=== PATIENT | male | born 1950 | race Caucasian/White ===

== ENCOUNTER → 2016-03-17 | Outpatient (CLI) | payer MEDICARE ==
--- NOTE | 2016-03-18 10:18 | MR ---
EXAMINATION TYPE: MR brain wo con DATE OF EXAM: 03/17/2016 4:22 PM COMPARISON: Prior outside brain MRI report February 16, 2013. HISTORY: Poss Brain Mass per pt. Previous MRI at [facility]. Prior abnormal brain MRI. Locali zed swelling, mass and lump in head per order. TECHNIQUE: Multiplanar, multisequence imaging of the brain and brainstem is performed without IV cont rast. FINDINGS: Diffusion weighted images demonstrate no evidence of a recent infarct or other diffusion abnormality. There is no worrisome extra-axial fluid collection. There is ventricular and sulcal prominence consis tent with diffuse cerebral atrophy. There are focal and confluent areas of T2 hyperintensity seen thr oughout the white matter bilaterally. Lesions are nonspecific in appearance and distribution most lik michelle on basis of product of chronic small vessel ischemic change in patient this age. Midline structures demonstrate normal morphology. The craniocervical junction appears within normal limits. Normal vascular flow voids are present. The globes are intact bilaterally. There are some muc ous retention cysts or polyps suspected in the right sphenoid sinus anteriorly as well as in the nasa l vault. Mild mucosal thickening in right maxillary sinus is present. A small mucous retention cyst o r polyp anteriorly in the left maxillary sinus is felt present. IMPRESSION: There is mild diffuse cerebral atrophy and moderate to severe nonspecific white matter ch anges presumed on basis of product of chronic small vessel ischemic change in patient this age. Evalu ation for masses is suboptimal without IV contrast enhancement. Only correlation with old outside rep ort is performed, direct comparison may be beneficial.
== END | disposition home or self-care (01) ==
LOC: RADMRIMAIN 15:22
PROVIDERS: ATTEND Nurse Practitioner Family
DX: G31.9 Degenerative disease of nervous system, unspecified (principal); R90.82 White matter disease, unspecified; R22.0 Localized swelling, mass and lump, head
CPT/HCPCS: 70551

== ENCOUNTER → 2016-06-24 | Outpatient (CLI) | payer MEDICARE ==
--- NOTE | 2016-06-24 13:42 | US ---
EXAMINATION TYPE: US venous doppler duplex UE RT DATE OF EXAM: 06/24/2016 1:28 PM COMPARISON: NONE CLINICAL HISTORY: I82.621 Acute embolism/throm right upper extremity. Patient c/o Right arm pain x 3 weeks especially laying on right side and with external arm rotation (patient c/o severe pain with e xternal rotation). SIDE PERFORMED: Right arm Right Arm: Negative for DVT and negative for SVT. Tech findings called to [place] at Dr Almanza's Office at exam's end. IMPRESSION: 1. Right upper extremity negative for deep venous thrombosis. 2. Right upper extremity negative for superficial venous thrombosis.
[2016-06-24 14:07] LABS: Basophils # (A) 0.1 k/uL (0-0.2); Basophils % (A) 1 %; CH 32.4; CHCM 35.6; Eosinophils # (A) 0.6 k/uL (0-0.7); Eosinophils % (A) 5 %; HCT 42.4 % (39.0-53.0); HDW 2.78; HGB 14.6 gm/dL (13.0-17.5); Luc # (Auto) 0.29; Luc % (Auto) 3; Lymphocytes # (A) 1.8 k/uL (1.0-4.8); Lymphocytes % (A) 17 %; MCH 31.6 pg (25.0-35.0); MCHC 34.5 g/dL (31.0-37.0); MCV 91.5 fL (80.0-100.0); Mean Platelet Volume 6.8; Monocytes # (A) 0.8 k/uL (0-1.0); Monocytes % (A) 7 %; Neutrophils # (A) 7.5 k/uL (1.3-7.7); Neutrophils % (A) 68 %; RBC 4.63 m/uL (4.30-5.90); RDW 12.7 % (11.5-15.5); WBC (Perox) 10.95
[2016-06-24 15:14] LABS: Erythrocyte Sedimentation Rate 41 mm/hr (0-15)
== END | disposition home or self-care (01) ==
LOC: RADUSWWP 12:29
PROVIDERS: ATTEND Family Medicine
DX: I82.409 Acute embolism and thrombosis of unspecified deep veins of unspecified lower extremity (principal)
CPT/HCPCS: 36415; 85025; 85379; 85652; 86141

== ENCOUNTER 2017-01-31 08:29 | Emergency (ER) | payer MEDICARE, OTHER ==
[2017-01-31] MEDS ORDERED: MORPHINE SULFATE 2 MG/ML SYRINGE IVP STA (08:44)
[2017-01-31] MEDS ORDERED: SODIUM CHLORIDE 0.9% 500 ML IV STA (08:44)
[2017-01-31] MEDS ORDERED: ONDANSETRON 4 MG/2 ML VIAL IVP STA (08:44)
[2017-01-31] MEDS ORDERED: RX INFO: IV CONTRAST WAS GIVEN 1 EACH MISC MISCELLANE PRN (08:44)
[2017-01-31 09:18] LABS: Basophils # (A) 0.1 k/uL (0-0.2); Basophils % (A) 0 %; CH 30.1; Eosinophils # (A) 0.3 k/uL (0-0.7); Eosinophils % (A) 3 %; HCT 43.2 % (39.0-53.0); HDW 2.58; Luc # (Auto) 0.05; Luc % (Auto) 0; Lymphocytes # (A) 0.9 k/uL (1.0-4.8); Lymphocytes % (A) 7 %; MCH 29.7 pg (25.0-35.0); MCHC 32.4 g/dL (31.0-37.0); MCV 91.6 fL (80.0-100.0); Mean Platelet Volume 7.6; Monocytes # (A) 0.5 k/uL (0-1.0); Monocytes % (A) 4 %; Neutrophils # (A) 10.8 k/uL (1.3-7.7); Neutrophils % (A) 85 %; RBC 4.72 m/uL (4.30-5.90); RDW 13.8 % (11.5-15.5); WBC 12.7 k/uL (3.8-10.6); WBC (Perox) 12.92
[2017-01-31 09:27] LABS: ALT 33 U/L (21-72); AST 19 U/L (17-59); Alkaline Phosphatase 92 U/L (38-126); Amylase 57 U/L (30-110); Anion Gap 14 mmol/L; Blood Urea Nitrogen 19 mg/dL (9-20); Calcium 9.9 mg/dL (8.4-10.2); Carbon Dioxide 23 mmol/L (22-30); Chloride 105 mmol/L (98-107); Glucose 266 mg/dL (74-99); Non-African American GFR(MDRD) >60 (>60 ml/min/1.73 sqM); Sodium 142 mmol/L (137-145); Total Bilirubin 0.5 mg/dL (0.2-1.3)
[2017-01-31 09:33] LABS: INR 1.1 (<1.2); Partial Thromboplastin Time 24.1 sec (22.0-30.0); Prothrombin Time 11.1 sec (9.0-12.0)
[2017-01-31] MEDS ORDERED: SODIUM CHLORIDE 0.9% 1,000 ML IV ONE (09:39)
[2017-01-31 10:27] LABS: Appearance,Urine Clear (Clear); Bilirubin,Urine Negative (Negative); Glucose,Urine (UA) 3+ (Negative); Ketones,Urine Trace (Negative); Leukocyte Esterase,Urine Negative (Negative); Nitrite,Urine Negative (Negative); Protein,Urine Trace (Negative); UA Billing (MACRO vs. MICRO) CHEM; Urobilinogen,Urine <2.0 mg/dL (<2.0)
--- NOTE | 2017-01-31 11:03 | ED ---
Abdominal Pain HPI - General Chief Complaint: Abdominal Pain Stated Complaint: Abd Pain Time Seen by Provider: 01/31/17 08:35 Source: patient, RN notes reviewed Mode of arrival: ambulatory Limitations: no limitations - History of Present Illness Initial Comments: 66-year-old male presents emergency Department with chief complaint of abdominal pain. Patient states is generalized abdominal pain started yesterday afternoon. Patient states is no localized abdominal pain denies nausea vomiting diarrhea constipation. Patient's had no prior abdominal surgeries. Denies any dysuria hematuria. Patient states he tried some Pepto-Bismol no relief of his symptoms. She denies chest pain, shortness breath, back pain, headache or dizziness - Related Data Home Medications Medication Instructions Recorded Confirmed Atorvastatin Calcium [Lipitor] 20 mg PO HS 01/31/17 01/31/17 Gabapentin [Neurontin] 300 mg PO BID 01/31/17 01/31/17 Hydrochlorothiazide [Hydrodiuril] 25 mg PO DAILY 01/31/17 01/31/17 Lisinopril 40 mg PO DAILY 01/31/17 01/31/17 Metoprolol Tartrate [Lopressor] 100 mg PO BID 01/31/17 01/31/17 Tamsulosin [Flomax] 0.4 mg PO HS 01/31/17 01/31/17 glipiZIDE [Glucotrol] 10 mg PO AC-BID 01/31/17 01/31/17 metFORMIN HCL [metFORMIN HCL] 1,000 mg PO BID 01/31/17 01/31/17 sitaGLIPtin [Januvia] 100 mg PO DAILY 01/31/17 01/31/17 Previous Rx's Medication Instructions Recorded Dicyclomine [Bentyl] 20 mg PO TID #30 tablet 01/31/17 Allergies Allergy/AdvReac Type Severity Reaction Status Date / Time No Known Allergies Allergy Verified 01/31/17 08:50 Review of Systems ROS Statement: Those systems with pertinent positive or pertinent negative responses have been documented in the HPI. ROS Other: All systems not noted in ROS Statement are negative. Past Medical History Past Medical History: Diabetes Mellitus, Hypertension History of Any Multi-Drug Resistant Organisms: None Reported Past Psychological History: No Psychological Hx Reported Smoking Status: Never smoker Past Alcohol Use History: None Reported Past Drug Use History: None Reported General Exam Limitations: no limitations General appearance: alert, in no apparent distress Head exam: Present: atraumatic, normocephalic, normal inspection Respiratory exam: Present: normal lung sounds bilaterally. Absent: respiratory distress, wheezes, rales, rhonchi, stridor Cardiovascular Exam: Present: regular rate, normal rhythm, normal heart sounds. Absent: systolic murmur, diastolic murmur, rubs, gallop, clicks GI/Abdominal exam: Present: soft, tenderness (Mild diffuse), normal bowel sounds. Absent: distended, guarding, rebound, rigid Back exam: Absent: CVA tenderness (R), CVA tenderness (L) Skin exam: Present: warm, dry, intact, normal color. Absent: rash Course Vital Signs 01/31/17 01/31/17 08:31 11:02 Temperature 98.0 F Pulse Rate 64 64 Respiratory 20 18 Rate Blood Pressure 130/66 173/77 O2 Sat by Pulse 98 97 Oximetry Medical Decision Making - Medical Decision Making 66-year-old male presented for abdominal pain. Patient's laboratory showed mildly elevated lactic but most likely related to dehydration. Patient was hydrated which she states she feels much improved at this time. Patient CT she is not specific will be discharged at this time with follow-up with his to be in GI and return for any worsening symptoms. - Lab Data Result diagrams: 01/31/17 09:00 01/31/17 09:00 Lab Results 01/31/17 01/31/17 01/31/17 Range/Units 09:00 09:00 09:00 WBC 12.7 H (3.8-10.6) k/uL RBC 4.72 (4.30-5.90) m/uL Hgb 14.0 (13.0-17.5) gm/dL Hct 43.2 (39.0-53.0) % MCV 91.6 (80.0-100.0) fL MCH 29.7 (25.0-35.0) pg MCHC 32.4 (31.0-37.0) g/dL RDW 13.8 (11.5-15.5) % Plt Count 376 (150-450) k/uL Neutrophils % 85 % Lymphocytes % 7 % Monocytes % 4 % Eosinophils % 3 % Basophils % 0 % Neutrophils # 10.8 H (1.3-7.7) k/uL Lymphocytes # 0.9 L (1.0-4.8) k/uL Monocytes # 0.5 (0-1.0) k/uL Eosinophils # 0.3 (0-0.7) k/uL Basophils # 0.1 (0-0.2) k/uL PT (9.0-12.0) sec INR (<1.2) APTT (22.0-30.0) sec Sodium 142 (137-145) mmol/L Potassium 4.0 (3.5-5.1) mmol/L Chloride 105 (98-107) mmol/L Carbon Dioxide 23 (22-30) mmol/L Anion Gap 14 mmol/L BUN 19 (9-20) mg/dL Creatinine 0.94 (0.66-1.25) mg/dL Est GFR (MDRD) Af Amer >60 (>60 ml/min/1.73 sqM) Est GFR (MDRD) Non-Af >60 (>60 ml/min/1.73 sqM) Glucose 266 H (74-99) mg/dL Plasma Lactic Acid Marcos 2.7 H* (0.7-2.0) mmol/L Calcium 9.9 (8.4-10.2) mg/dL Total Bilirubin 0.5 (0.2-1.3) mg/dL AST 19 (17-59) U/L ALT 33 (21-72) U/L Alkaline Phosphatase 92 (38-126) U/L Total Protein 8.0 (6.3-8.2) g/dL Albumin 4.5 (3.5-5.0) g/dL Amylase 57 (30-110) U/L Lipase 216 (23-300) U/L Urine Color Urine Appearance (Clear) Urine pH (5.0-8.0) Ur Specific Hulett (1.001-1.035) Urine Protein (Negative) Urine Glucose (UA) (Negative) Urine Ketones (Negative) Urine Blood (Negative) Urine Nitrite (Negative) Urine Bilirubin (Negative) Urine Urobilinogen (<2.0) mg/dL Ur Leukocyte Esterase (Negative) 01/31/17 01/31/17 Range/Units 09:00 10:07 WBC (3.8-10.6) k/uL RBC (4.30-5.90) m/uL Hgb (13.0-17.5) gm/dL Hct (39.0-53.0) % MCV (80.0-100.0) fL MCH (25.0-35.0) pg MCHC (31.0-37.0) g/dL RDW (11.5-15.5) % Plt Count (150-450) k/uL Neutrophils % % Lymphocytes % % Monocytes % % Eosinophils % % Basophils % % Neutrophils # (1.3-7.7) k/uL Lymphocytes # (1.0-4.8) k/uL Monocytes # (0-1.0) k/uL Eosinophils # (0-0.7) k/uL Basophils # (0-0.2) k/uL PT 11.1 (9.0-12.0) sec INR 1.1 (<1.2) APTT 24.1 (22.0-30.0) sec Sodium (137-145) mmol/L Potassium (3.5-5.1) mmol/L Chloride (98-107) mmol/L Carbon Dioxide (22-30) mmol/L Anion Gap mmol/L BUN (9-20) mg/dL Creatinine (0.66-1.25) mg/dL Est GFR (MDRD) Af Amer (>60 ml/min/1.73 sqM) Est GFR (MDRD) Non-Af (>60 ml/min/1.73 sqM) Glucose (74-99) mg/dL Plasma Lactic Acid Marcos (0.7-2.0) mmol/L Calcium (8.4-10.2) mg/dL Total Bilirubin (0.2-1.3) mg/dL AST (17-59) U/L ALT (21-72) U/L Alkaline Phosphatase (38-126) U/L Total Protein (6.3-8.2) g/dL Albumin (3.5-5.0) g/dL Amylase (30-110) U/L Lipase (23-300) U/L Urine Color Yellow Urine Appearance Clear (Clear) Urine pH 5.0 (5.0-8.0) Ur Specific Hulett 1.020 (1.001-1.035) Urine Protein Trace H (Negative) Urine Glucose (UA) 3+ H (Negative) Urine Ketones Trace H (Negative) Urine Blood Negative (Negative) Urine Nitrite Negative (Negative) Urine Bilirubin Negative (Negative) Urine Urobilinogen <2.0 (<2.0) mg/dL Ur Leukocyte Esterase Negative (Negative) Disposition Clinical Impression: Abdominal pain Disposition: HOME SELF-CARE Condition: Stable Instructions: Abdominal Pain (ED) Additional Instructions: Please return to the Emergency Department if symptoms worsen or any other concerns. Prescriptions: Dicyclomine [Bentyl] 20 mg PO TID #30 tablet Referrals: Mar Suggs MD [Primary Care Provider] - 1-2 days Thiago Hardin MD [STAFF PHYSICIAN] - 1-2 days Time of Disposition: 11:21
--- NOTE | 2017-01-31 11:10 | CT ---
EXAMINATION TYPE: CT abdomen pelvis w con DATE OF EXAM: 01/31/2017 COMPARISON: NONE INDICATION: Patient complains of generalized abdominal/pelvic pain and nausea. DLP: 1910.2 mGycm, Automated exposure control for dose reduction was used. CONTRAST: 100 mL of Omnipaque 300. Study performed without Oral Contrast TECHNIQUE: Axial images were obtained from above the diaphragm to the pubic rami in the axial plane a t 5 mm thick sections. Reconstructed images are reviewed on the computer in the coronal plane. FINDINGS: Limited CT sections are obtained the lung bases. There is a 0.6 cm nodular density on the initial im age within the anterior right middle lobe. Series 5 image 1. Some mild infiltrate may be in the poste rior lateral right lung base and within the lingula. Consider atelectasis. Mild coronary artery calci fication is present.. CT ABDOMEN: Liver: Normal Spleen: Normal Pancreas: Normal Adrenal glands: The adrenal glands are normal. Gallbladder: Multiple dense gallstones are present. Kidneys: No masses are evident. No hydronephrosis is present. No cysts are present. Delayed images were obtained through the kidneys, which remain unremarkable. Aorta: Vascular calcification is within the aorta. Inferior vena cava: Normal. CT PELVIS: There are scattered small lymph nodes within the mesentery. No suspicious enlarged adenopa thy is evident. Fat-containing left inguinal hernia is present. Loops of bowel within the abdomen and pelvis are normal. This study is performed without oral con trast limiting the evaluation. Appendix: Normal as visualized. Urinary bladder: Normal. Genitourinary structures: The prostate is slightly prominent. Osseous structures: No suspicious lytic or sclerotic lesions. Spondylolysis of L5 is present. IMPRESSIONS: 1. No suspicious acute abnormality. 2. Small nodular density right middle lobe. Follow-up CT chest with contrast could be performed for c omplete evaluation on an outpatient basis. 3. Spondylolysis of L5.
[2017-01-31 11:41] VITALS: BP 127/71; PULSE 60; RESP 16; TEMP 97.2
== END 2017-01-31 11:41 | disposition home or self-care (01) ==
LOC: EC 08:29
DX: R10.84 Generalized abdominal pain (principal); E11.9 Type 2 diabetes mellitus without complications; I10 Essential (primary) hypertension; Z79.84 Long term (current) use of oral hypoglycemic drugs; Z79.899 Other long term (current) drug therapy
CPT/HCPCS: 36415; 80053; 82150; 83605; 83690; 85025; 85610; 85730; 81003; 87040; 74177; 99284; 96374; 96375; 96361 ×2; J2405; J2270; Q9967

== ENCOUNTER → 2017-06-20 | Outpatient (CLI) | payer MEDICARE, OTHER ==
[2017-06-20 16:10] LABS: Basophils # (A) 0.1 k/uL (0-0.2); Basophils % (A) 0 %; Eosinophils # (A) 0.8 k/uL (0-0.7); Eosinophils % (A) 6 %; HGB 14.4 gm/dL (13.0-17.5); Lymphocytes # (A) 2.1 k/uL (1.0-4.8); Lymphocytes % (A) 17 %; MCH 30.1 pg (25.0-35.0); MCHC 34.2 g/dL (31.0-37.0); MCV 88.1 fL (80.0-100.0); Mean Platelet Volume 6.8; Monocytes # (A) 0.8 k/uL (0-1.0); Monocytes % (A) 7 %; Neutrophils # (A) 8.4 k/uL (1.3-7.7); Neutrophils % (A) 68 %; Platelet Count 357 k/uL (150-450); RBC 4.77 m/uL (4.30-5.90); RDW 13.7 % (11.5-15.5); WBC 12.4 k/uL (3.8-10.6)
[2017-06-20 16:26] LABS: ALT 275 U/L (21-72); AST 102 U/L (17-59); Albumin 4.3 g/dL (3.5-5.0); Alkaline Phosphatase 143 U/L (38-126); Anion Gap 18 mmol/L; Blood Urea Nitrogen 17 mg/dL (9-20); Calcium 9.6 mg/dL (8.4-10.2); Carbon Dioxide 23 mmol/L (22-30); Chloride 104 mmol/L (98-107); Cholesterol 198 mg/dL (<200); Glucose 100 mg/dL (74-99); HDL Cholesterol 34 mg/dL (40-60); LDL Cholesterol,Calculated 115 mg/dL (0-99); Potassium 4.4 mmol/L (3.5-5.1); Sodium 145 mmol/L (137-145); Total Bilirubin 0.7 mg/dL (0.2-1.3); Total Protein 7.9 g/dL (6.3-8.2); Triglycerides 243 mg/dL (<150)
[2017-06-21 03:22] LABS: Hemoglobin A1C 6.2 % (4.0-6.0)
== END | disposition home or self-care (01) ==
LOC: LABWHC1 15:24
PROVIDERS: ATTEND Family Medicine
DX: E11.9 Type 2 diabetes mellitus without complications (principal); I10 Essential (primary) hypertension; E06.3 Autoimmune thyroiditis
CPT/HCPCS: 36415; 80053; 80061; 82043; 82570; 83036; 84439; 84443; 85025

== ENCOUNTER → 2017-12-21 | Outpatient (CLI) | payer MEDICARE | END | disposition home or self-care (01) | LOC: LABWHC1 09:28 | PROVIDERS: ATTEND Family Medicine | DX: R19.4 Change in bowel habit (principal) | CPT/HCPCS: 36415; 82272 ==

== ENCOUNTER 2024-02-11 11:08 | Emergency (ER) | payer MEDICARE ==
--- NOTE | 2024-02-11 11:46 | ED ---
General Adult HPI - General Chief complaint: Fall Stated complaint: Fall, head injury Time Seen by Provider: 02/11/24 11:40 Source: patient, RN notes reviewed Mode of arrival: wheelchair Limitations: no limitations - History of Present Illness Initial comments: Patient is a 73-year-old male present to the emergency department department with a fall. Patient states he was in a parking lot and slipped on black ice. Patient struck forward with his face. Unclear last tetanus immunization. Patient denies loss of consciousness. No significant headache. Mild facial discomfort. Patient denies weakness or confusion. No neck or back pain. No chest pain. No abdominal pain. No dyspnea. - Related Data Home Medications Medication Instructions Recorded Confirmed Gabapentin [Neurontin] 300 mg PO BID 01/31/17 01/11/18 Metoprolol Tartrate [Lopressor] 100 mg PO BID 01/31/17 01/11/18 glipiZIDE [Glucotrol] 10 mg PO AC-BID 01/31/17 01/11/18 hydroCHLOROthiazide [Hydrodiuril] 25 mg PO DAILY 01/31/17 01/11/18 lisinopriL 40 mg PO DAILY 01/31/17 01/11/18 metFORMIN HCL 1,000 mg PO BID 01/31/17 01/11/18 Allergies Allergy/AdvReac Type Severity Reaction Status Date / Time No Known Allergies Allergy Verified 02/11/24 11:14 Review of Systems ROS Statement: Those systems with pertinent positive or pertinent negative responses have been documented in the HPI. ROS Other: All systems not noted in ROS Statement are negative. Constitutional: Denies: fever Eyes: Denies: eye pain ENT: Denies: ear pain Respiratory: Denies: cough, dyspnea Cardiovascular: Denies: chest pain Endocrine: Denies: fatigue Gastrointestinal: Denies: abdominal pain Skin: Reports: as per HPI Neurological: Reports: as per HPI. Denies: headache, weakness, confusion Past Medical History Past Medical History: Diabetes Mellitus, Hypertension Additional Past Medical History / Comment(s): Vertigo History of Any Multi-Drug Resistant Organisms: None Reported Past Surgical History: No Surgical Hx Reported Additional Past Surgical History / Comment(s): cyst removed from R wrist Past Anesthesia/Blood Transfusion Reactions: No Reported Reaction Past Psychological History: No Psychological Hx Reported Smoking Status: Former smoker Past Alcohol Use History: None Reported Past Drug Use History: None Reported - Past Family History Mother Family Medical History: No Reported History General Exam Limitations: no limitations General appearance: alert, in no apparent distress Head exam: Present: normocephalic, other (Facial abrasions) Eye exam: Present: normal appearance, PERRL, EOMI ENT exam: Present: normal exam, other (Mild nasal swelling. No significant tenderness. Facial abrasions. No septal hematoma) Neck exam: Present: normal inspection. Absent: tenderness Respiratory exam: Present: normal lung sounds bilaterally Cardiovascular Exam: Present: regular rate, normal rhythm GI/Abdominal exam: Present: soft. Absent: distended, tenderness Extremities exam: Present: normal inspection, full ROM. Absent: tenderness Neurological exam: Present: alert, oriented X3, CN II-XII intact. Absent: motor sensory deficit Psychiatric exam: Present: normal affect, normal mood Skin exam: Present: abrasion Course Vital Signs 02/11/24 11:14 Temperature 97.6 F Pulse Rate 48 L Respiratory 18 Rate Blood Pressure 140/66 O2 Sat by Pulse 99 Oximetry Medical Decision Making - Medical Decision Making Was pt. sent in by a medical professional or institution (, PA, WORKS MANAGER, urgent care, hospital, or [place] health care facility...) When possible be specific @ -No Did you speak to anyone other than the patient for history (EMS, parent, family, police, friend...)? What history was obtained from this source @ -No Did you review nursing and triage notes (agree or disagree)? Why? @ -I reviewed and agree with nursing and triage notes Were old charts reviewed (outside hosp., previous admission, EMS record, old EKG, old radiological studies, urgent care reports/EKG's, [place] health care facility records)? Report findings @ -No old charts were reviewed Differential Diagnosis (chest pain, altered mental status, abdominal pain women, abdominal pain men, vaginal bleeding, weakness, fever, dyspnea, syncope, headache, dizziness, GI bleed, back pain, seizure, CVA, palpatations, mental health, musculoskeletal)? @ -Differential Headache: Migraine, tension, cluster, carbon monoxide, central venous thrombosis, pension karma temporal arteritis, acute closure glaucoma, intercranial hemorrhage, mastoiditis, sinusitis, head injury, this is not meant to be an all-inclusive list. EKG interpreted by me (3pts min.). @ -As above X-rays interpreted by me (1pt min.). @ -None done CT interpreted by me (1pt min.). @ -CT scan of the brain does not reveal acute abnormality U/S interpreted by me (1pt. min.). @ -None done What testing was considered but not performed or refused? (CT, X-rays, U/S, labs)? Why? @ -None What meds were considered but not given or refused? Why? @ -None Did you discuss the management of the patient with other professionals (prof lundy i.e. , PA, WORKS MANAGER, lab, RT, psych nurse, healthcare social worker, front office agent, teacher, hydrological technical officer, case worker)? Give summary @ -No Was smoking cessation discussed for >3mins.? @ -No Was critical care preformed (if so, how long)? @ -No Were there social determinants of health that impacted care today? How? (Homelessness, low income, unemployed, alcoholism, drug addiction, transportation, low edu. Level, literacy, decrease access to med. care, correction, rehab)? @ -No Was there de-escalation of care discussed even if they declined (Discuss DNR or withdrawal of care, Hospice)? DNR status @ -No What co-morbidities impacted this encounter? (DM, HTN, Smoking, COPD, CAD, Cancer, CVA, ARF, Chemo, Hep., AIDS, mental health diagnosis, sleep apnea, morbid obesity)? @ -None Was patient admitted / discharged? Hospital course, mention meds given and route, prescriptions, significant lab abnormalities, going to OR and other pertinent info. @ -Patient presents with slip and fall with head injury. Patient is over age [address] scan done is unremarkable. Patient will be discharged with follow-up. Patient updated. Tetanus immunization updated Undiagnosed new problem with uncertain prognosis? @ -No Drug Therapy requiring intensive monitoring for toxicity (Heparin, Nitro, Insulin, Cardizem)? @ -No Were any procedures done? @ -No Diagnosis/symptom? @ -Fall, head injury Acute, or Chronic, or Acute on Chronic? @ -Acute, acute Uncomplicated (without systemic symptoms) or Complicated (systemic symptoms)? @ -Default Side effects of treatment? @ -No Exacerbation, Progression, or Severe Exacerbation? @ -No Poses a threat to life or bodily function? How? (Chest pain, USA, CA, pneumonia, PE, COPD, DKA, ARF, appy, cholecystitis, CVA, Diverticulitis, Homicidal, Suicidal, threat to staff... and all critical care pts) @ -No Disposition Clinical Impression: Fall, Head injury Disposition: HOME SELF-CARE Condition: Stable Instructions (If sedation given, give patient instructions): Fall Prevention (ED), Head Injury (ED) Additional Instructions: Please do follow-up with your primary care physician in the next couple of days for recheck. [id number] Tylenol as needed. Return for increased pain, confusion, weakness, worsening or changing symptoms or any other concerns. Is patient prescribed a controlled substance at d/c from ED?: No Referrals: Kevin White DO [Primary Care Provider] - 1-2 days Time of Disposition: 12:32
--- NOTE | 2024-02-11 12:09 | CT ---
EXAMINATION TYPE: CT brain wo con DATE OF EXAM: 02/11/2024 COMPARISON: None CLINICAL INDICATION: Male, 73 years old with history of fall; [facility], Fall CT DLP: 1212.4 mGycm Automated exposure control for dose reduction was used. Findings: The ventricles, basal cisterns and sulci over the convexities are moderately enlarged. There is mild- to-moderate decreased density in the periventricular white matter consistent with chronic ischemic wh ite matter demyelination. There is no mass effect or shift of the midline structures. There is no acute intra or extra-axial hemorrhage. The posterior fossa including the brainstem, fourth ventricle and cerebellar pontine angles appear no rmal. Intraorbital contents appear normal and symmetric. There is mild chronic sinusitis involving the ethmoid air cells. There are postsurgical changes invol ving the medial extra sinuses. The mastoid air cells are well aerated. The calvarium is intact. IMPRESSION: 1. No acute bleed or mass effect. 2. Senescent changes including moderate atrophy and moderate chronic ischemic white matter change.. [facility], , 02/11/2024 12:06 PM
[2024-02-11] MEDS: DIPH,PERTUS(ACELL)TETVAC-LF 0.5 ML VIAL IM ONE (12:42)
[2024-02-11 12:58] VITALS: BP 122/72; PULSE 56; RESP 16; TEMP 97.5
== END 2024-02-11 12:54 | disposition home or self-care (01) ==
LOC: EC 11:08
DX: S09.90XA Unspecified injury of head, initial encounter (principal); Z87.891 Personal history of nicotine dependence; Z23 Encounter for immunization; W00.0XXA Fall on same level due to ice and snow, initial encounter; Y92.481 Parking lot as the place of occurrence of the external cause
CPT/HCPCS: 70450; 90471; 90715; 99283